=== PATIENT | female | born 1950 | race Caucasian/White ===

== ENCOUNTER 2018-12-20 16:40 | Emergency (ER) | payer MEDICARE, BC ==
--- NOTE | 2018-12-20 17:44 | ED Physician Documentation ---
PD HPI URI - Stated complaint Stated Complaint: CHILLS/FEVER CONGESTION - Chief complaint Chief Complaint: Fever - History obtained from History obtained from: Patient - History of Present Illness Timing - onset: Yesterday Timing duration: Days (1) Timing details: Abrupt onset, Still present Associated symptoms: Fever, Chills, Productive cough (yelowish small amount), Dyspnea (wheezing with history of asthma when sick.) Contributing factors: Travel (couple days ago just from [place].), COPD / asthma (MDI s PRN. No home nebulizer nor oxygen.). No: Sick contact, Immunocompromised Similar symptoms before: Diagnosis (asthma exac with URIs, and says she progresses into pneumonia quickly and regularly in the past.) Recently seen: Not recently seen Review of Systems Constitutional: reports: Fever, Chills, Myalgias Nose: reports: Congestion. denies: Rhinorrhea / runny nose Throat: denies: Sore throat Cardiac: denies: Chest pain / pressure Respiratory: reports: Dyspnea, Cough, Wheezing GI: reports: Abdominal Pain, Nausea. denies: Vomiting, Diarrhea : denies: Dysuria, Frequency Musculoskeletal: denies: Neck pain, Back pain Neurologic: reports: Generalized weakness. denies: Focal weakness, Numbness, Difficulty speaking, Near syncope, Altered mental status PD PAST MEDICAL HISTORY - Past Medical History Past Medical History: Yes Cardiovascular: Arrhythmia Respiratory: Pneumonia Neuro: None Endocrine/Autoimmune: None GI: None PRECISION GRINDER: None : Renal insuffiency HEENT: None Psych: None Musculoskeletal: None Derm: None Other Past Medical History: denies any others - Past Surgical History Past Surgical History: No - Present Medications Home Medications: Ambulatory Orders Medication Instructions Recorded Confirmed Benzonatate [Tessalon Perle] 100 mg PO TID PRN #20 capsule 12/20/18 Cephalexin [Keflex] 500 mg PO Q6H #28 capsule 12/20/18 Dexamethasone [Decadron] 4 mg PO DAILY #5 tablet 12/20/18 Ondansetron Odt [Zofran] 4 mg TL Q6H PRN #10 tablet 12/20/18 RX: Albuterol Sulf [Ventolin Hfa 2 puffs INH Q4HR PRN #1 inhaler 12/20/18 Inhaler] - Allergies Allergies/Adverse Reactions: Allergies Allergy/AdvReac Type Severity Reaction Status Date / Time acetaminophen [From Tylenol] AdvReac Unknown Verified 12/20/18 16:56 ibuprofen AdvReac Unknown Verified 12/20/18 16:56 - Social History Does the pt smoke?: No Smoking Status: Never smoker Does the pt drink ETOH?: No Does the pt have substance abuse?: No - Family History Family history: reports: Non contributory - Immunizations Immunizations are current?: Yes PD ED PE NORMAL - Vitals Vital signs reviewed: Yes - General General: Alert and oriented X 3, No acute distress, Well developed/nourished - HEENT HEENT: Ears normal, Moist mucous membranes, Pharynx benign - Neck Neck: Supple, no meningeal sign, No adenopathy - Cardiac Cardiac: RRR, No murmur - Respiratory Respiratory: No respiratory distress. No: Clear bilaterally (diffuse wheezing without coarse sounds. No fine crackles. ) - Abdomen Abdomen: Soft, Non tender - Back Back: No CVA TTP, No spinal TTP - Derm Derm: Normal color, Warm and dry - Extremities Extremities: Normal ROM s pain, No edema, No calf tenderness / cord - Neuro Neuro: Alert and oriented X 3, No motor deficit, Normal speech Results - Vitals Vitals: Vital Signs - 24 hr 12/20/18 12/20/18 12/20/18 16:48 18:15 18:37 Temperature 39.0 C H Heart Rate 102 H 100 97 Respiratory 18 18 18 Rate Blood Pressure 139/75 H 127/73 O2 Saturation 97 98 12/20/18 12/20/18 12/20/18 18:41 18:46 19:15 Temperature 37.1 C 38.9 C H 38.7 C H Heart Rate 100 Respiratory 16 Rate Blood Pressure 132/76 H O2 Saturation 100 Oxygen O2 Source Room air - Labs Labs: Laboratory Tests 12/20/18 12/20/18 12/20/18 17:50 17:50 17:50 WBC 10.1 RBC 3.62 L Hgb 11.4 L Hct 34.6 L MCV 95.7 MCH 31.6 H MCHC 33.0 RDW 12.5 Plt Count 248 MPV 7.4 L Neut # (Auto) 8.3 H Lymph # (Auto) 1.2 L [place] # (Auto) 0.4 Eos # (Auto) 0.2 Baso # (Auto) 0.0 Absolute Nucleated RBC 0.00 Nucleated RBC % 0.0 Sodium 137 Potassium 4.1 Chloride 102 Carbon Dioxide 24 Anion Gap 11.0 BUN 24 H Creatinine 1.8 H Estimated GFR (MDRD) 28 L Glucose 97 Lactic Acid 1.1 Calcium 8.1 L Magnesium 2.5 Total Bilirubin 0.3 AST 27 ALT 22 Alkaline Phosphatase 96 B-Natriuretic Peptide Total Protein 6.8 Albumin 3.6 Globulin 3.2 Albumin/Globulin Ratio 1.1 Lipase 36 Influenza A (Rapid) Influenza B (Rapid) 12/20/18 12/20/18 17:50 18:33 WBC RBC Hgb Hct MCV MCH MCHC RDW Plt Count MPV Neut # (Auto) Lymph # (Auto) [place] # (Auto) Eos # (Auto) Baso # (Auto) Absolute Nucleated RBC Nucleated RBC % Sodium Potassium Chloride Carbon Dioxide Anion Gap BUN Creatinine Estimated GFR (MDRD) Glucose Lactic Acid Calcium Magnesium Total Bilirubin AST ALT Alkaline Phosphatase B-Natriuretic Peptide 57 Total Protein Albumin Globulin Albumin/Globulin Ratio Lipase Influenza A (Rapid) Negative Influenza B (Rapid) Negative - Rads (name of study) chest xray Radiology: Prelim report reviewed (no infiltrates nor acute process) PD MEDICAL DECISION MAKING - ED course Complexity details: considered differential (not hypoxic and has wheezing that clears with nebulizer fairly well. Other meds are neutral.), d/w patient Departure - Departure Disposition: 01 Home, Self Care Clinical Impression: Upper respiratory infection Qualifiers: URI type: unspecified URI Qualified Code(s): J06.9 - Acute upper respiratory infection, unspecified Condition: Stable Record reviewed to determine appropriate education?: Yes Instructions: ED Upper Resp Infec Abx Tx Prescriptions: RX: Albuterol Sulf [Ventolin Hfa Inhaler] 2 puffs INH Q4HR PRN #1 inhaler PRN Reason: Shortness Of Air/Wheezing Benzonatate [Tessalon Perle] 100 mg PO TID PRN #20 capsule PRN Reason: Cough Cephalexin [Keflex] 500 mg PO Q6H #28 capsule Dexamethasone [Decadron] 4 mg PO DAILY #5 tablet Ondansetron Odt [Zofran] 4 mg TL Q6H PRN #10 tablet PRN Reason: Nausea / Vomiting Comments: Your chest x-ray appears normal. No signs of pneumonia. Blood tests of the white count and lactate do not show any signs of significant bacterial infection or sepsis at this time. Your flu test is negative. It does sound somewhat flulike but would presume other viral illness at this time. Use albuterol inhaler 2 puffs 4 times a day regularly and extra times as needed for wheezing and cough. Decadron steroid for inflammation of the airways to reduce coughing and improve breathing. Use Tessalon if needed for cough suppression. Stay well-hydrated. Ondansetron if needed for nausea. Given your concern of these types of illnesses leading to pneumonia easily in the past, we can add cephalexin antibiotic as try to prevent that from happening. Recheck if worsening over the next couple of days. Otherwise expect to feel ill for several days. Stay well-hydrated use some Tylenol 500 mg 3-4 times a day along with your other usual medications. There should still have you under the guideline limits of the amount of Tylenol use daily. Discharge Date/Time: 12/20/18 19:35
[2018-12-20] MEDS ORDERED: SODIUM CHLORIDE 0.9% 1,000 ML IV ONE (17:56)
[2018-12-20] MEDS ORDERED: ACETAMINOPHEN 325 MG TABLET PO STA (17:56)
[2018-12-20] MEDS ORDERED: ALBUTEROL NEB 2.5 MG/3 ML INH STA (17:57)
[2018-12-20] MEDS ORDERED: BENZONATATE 100 MG CAPSULE PO STA (17:58)
[2018-12-20] MEDS ORDERED: DEXAMETHASONE 10 MG/ML VIAL IVP STA (17:58)
[2018-12-20 18:07] LABS: BASOPHILS % (AUTO) 0.3 %; EOSINOPHILS # (AUTO) 0.2 10^3/uL (0.0-0.7); EOSINOPHILS % (AUTO) 1.7 %; HGB - HEMOGLOBIN 11.4 g/dL (12.0-16.0); LYMPHOCYTES # (AUTO) 1.2 10^3/uL (1.5-3.5); LYMPHOCYTES % (AUTO) 11.9 %; MEAN CORPUSCULAR HEMOGLOBIN 31.6 pg (27.0-31.0); MEAN CORPUSCULAR VOLUME 95.7 fL (81.0-99.0); MEAN PLATELET VOLUME 7.4 fL (7.9-10.8); MONOCYTES # (AUTO) 0.4 10^3/uL (0.0-1.0); NEUTROPHILS # (AUTO) 8.3 10^3/uL (1.5-6.6); NEUTROPHILS % (AUTO) 82.1 %; PLT - PLATELET COUNT 248 10^3/uL (130-450); RED BLOOD COUNT 3.62 10^6/uL (4.20-5.40); RED CELL DISTRIBUTION WIDTH 12.5 % (12.0-15.0); WHITE BLOOD COUNT 10.1 x10^3/uL (4.8-10.8)
[2018-12-20 18:21] LABS: ALBUMIN 3.6 g/dL (3.2-5.5); ALBUMIN/GLOBULIN RATIO 1.1 (1.0-2.2); BILIRUBIN,TOTAL 0.3 mg/dL (0.2-1.0); CALCIUM 8.1 mg/dL (8.5-10.3); CREATININE 1.8 mg/dL (0.4-1.0); MAGNESIUM 2.5 mg/dL (1.7-2.8); TOTAL PROTEIN 6.8 g/dL (6.7-8.2)
--- NOTE | 2018-12-20 18:35 | XRAY Report ---
Reason: cough and fever Procedure Date: 12/20/2018 Accession Number: [id number] / [id number] Procedure: XR - Chest 2 View X-Ray CPT Code: 76325 FULL RESULT: EXAM: CHEST RADIOGRAPHY EXAM DATE: 12/20/2018 06:09 PM. CLINICAL HISTORY: Cough and fever COMPARISON: None. TECHNIQUE: 2 views. FINDINGS: Lungs/Pleura: No focal opacities evident. No pleural effusion. No pneumothorax. Normal volumes. Mediastinum: Heart and mediastinal contours are unremarkable. Other: None. IMPRESSION: No acute intrathoracic plain film abnormality. [facility]
[2018-12-20] MEDS ORDERED: cefTRIAXone 1 GM VIAL IVP STA (19:05)
[2018-12-20 19:16] VITALS: BP 132/76
== END 2018-12-20 19:35 | disposition home or self-care (01) ==
LOC: ED 16:40
DX: J06.9 Acute upper respiratory infection, unspecified (principal)
CPT/HCPCS: 36415; 71046; 80053; 83605; 83690; 83735; 83880; 85025; 87275; 87276; 94640; 96374; 96375; 99283; 99284; A9270